=== PATIENT | female | born 1985 | race African-American/Black ===

== ENCOUNTER 2019-02-23 14:56 | Emergency (ER) | payer OTHER ==
[~2019-02-23] VITALS: Ht 167.6 cm; Wt 131.1 kg
[~2019-02-23 14:56] MED LIST: BACTRIM DS TAB1 EACH PO; CARISOPRODOL 3350 MG PO; IBUPROFEN 800800 M1 PO; IRON325 PO; NOHOMEMEDICATIONS
[2019-02-23 18:10] VITALS: BP 146/50
== END 2019-02-23 17:16 | disposition home or self-care (01) ==
LOC: ER 14:56
DX: S61.112A Laceration without foreign body of left thumb with damage to nail, initial encounter (principal); W26.0XXA Contact with knife, initial encounter; Y92.89 Other specified places as the place of occurrence of the external cause; Y93.89 Activity, other specified; Y99.8 Other external cause status